=== PATIENT | female | born 1995 | race Caucasian/White ===

== ENCOUNTER 2018-07-26 23:33 | Observation (INO) | payer OTHER ==
--- NOTE | 2018-07-27 00:45 | PDOC ---
History of Present Illness - General Chief Complaint: Syncope/Near Syncope Stated Complaint: SYNCOPY Time Seen by Provider: 07/27/18 00:44 History Source: Patient Exam Limitations: No Limitations - History of Present Illness Initial Comments: 23 yo F w no pmh presents to the ER after 3 episodes of syncope today, decreased PO and fluid intake, abdominal pain, nausea and vomiting. She states she has not been able to eat very much since yesterday. She admits to feeling extremely dehydrated. She also endorses subjective feelings of warmth but no measured fevers and endorses occasional SOB. She states the pain in her abdomen is in the peigastric region, is 8/10 and does not radiate anywhere. LMP 1 week prior Denies headache, neck pain, blurry vision, diarrhea, back pain, dysuria, frequency, urgency PCP: None PSH: None reported Allergies: NKA, NKDA Social Hx: Denies smoking, drinking, and other substance usage. Past History - Past Medical History Allergies/Adverse Reactions: Allergies Allergy/AdvReac Type Severity Reaction Status Date / Time No Known Allergies Allergy Verified 07/27/18 00:48 Review of Systems - Review of Systems Able to Perform ROS?: Yes Comments:: CONSTITUTIONAL: Present: subjective fever, fatigue Absent: no chills EYES: Absent: visual changes ENT: Absent: ear pain, no sore throat CARDIOVASCULAR: Absent: chest pain, no palpitations RESPIRATORY: Present: SOB Absent: SOB GI: Present: Abdominal pain, nausea, vomiting Absent: no constipation, no diarrhea GENITOURINARY: Absent: dysuria, no frequency, no hematuria MUSKULOSKELETAL: Absent: back pain, no arthralgia, no myalgia SKIN: Absent: rash NEURO: Absent: headache *Physical Exam - Physical Exam Comments: GENERAL: Well-appearing, well-nourished. No apparent distress. HEENT: Normocephalic, atraumatic. PERRL, EOM intact. CARDIOVASCULAR: Normal S1, S2. Regular rate and rhythm. PULMONARY: No evidence of respiratory distress. Lungs clear to auscultation bilaterally. No wheezing, rales or rhonchi. ABDOMEN: Mild epigastric TTP. Soft, non-distended EXTREMITIES: Normal ROM in all four extremities. No gross deformities. SKIN: Pale, Warm, dry. No rash NEUROLOGICAL: No focal neurological deficits. ED Treatment Course - LABORATORY CBC & Chemistry Diagram: 07/27/18 01:00 07/27/18 01:00 Medical Decision Making - Medical Decision Making 23 yo F w no pmh presents to the ER after 3 episodes of syncope today, decreased PO and fluid intake, abdominal pain, nausea and vomiting. She states she has not been able to eat very much since yesterday. She admits to feeling extremely dehydrated. She also endorses subjective feelings of warmth but no measured fevers and endorses occasional SOB. She states the pain in her abdomen is in the peigastric region, is 8/10 and does not radiate anywhere. DDx IBNLT: Syncope vs seizure, gastroenteritis, food poisoning, pancreatitis, cholecystitis, arrhythmia, PE Plan: Labs, Urine, EKG, CXR, IV hydration, zofran, tylenol, echocardiogram, re- assess. ECHO shows normal wall movement diffusely. no pericardial effusion. When walking to the bathroom in the ED to provide urine patient syncopized and began having rhythmic jerks. There was conceern for a seizure so she received Ativan Will admit patient to Tele for further observation. *DC/Admit/Observation/Transfer Diagnosis at time of Disposition: Syncope and collapse - Discharge Dispostion Condition at time of disposition: Guarded Decision to Admit order: Yes - Referrals - Patient Instructions - Post Discharge Activity
[2018-07-27 00:48] VITALS: BMI 19.5
[2018-07-27] MEDS ORDERED: SODIUM CHLORIDE 0.9% 500 ML INFUS.BAG IV ONE ×2 (00:50→03:29)
[2018-07-27] MEDS ORDERED: ONDANSETRON 4 MG/2 ML VIAL IVPUSH ONE (00:51)
[2018-07-27] MEDS ORDERED: ACETAMINOPHEN 1000 MG/100 ML VIAL (NON FORMULARY) IVPB ONE (00:51)
[2018-07-27] MEDS ORDERED: ALBUTEROL SO4 0.5 % INH SOLN 2.5 MG/0.5 ML VIAL.NEB. NEB ONE (00:53)
[2018-07-27 01:06] LABS: BASO % 0.5 % (0-2.0); EOS % 0.2 % (0-4.5); HEMATOCRIT 36.6 % (32.4-45.2); HEMOGLOBIN 13.1 GM/dL (10.7-15.3); LYMPH % 6.1 % (8-40); MCH 30.1 pg (25.7-33.7); MCHC 35.8 g/dl (32.0-36.0); MEAN PLT VOLUME 8.4 fl (7.5-11.1); MONO % 7.5 % (3.8-10.2); NEUT % 85.7 % (42.8-82.8); PLATELET COUNT 238 K/MM3 (134-434); RBC 4.36 M/mm3 (3.60-5.2); RDW 13.2 % (11.6-15.6)
[2018-07-27] MEDS ORDERED: LORazepam 2 MG/ML SDV VIAL ONE (01:06)
[2018-07-27] MEDS ORDERED: ONDANSETRON 4 MG/2 ML VIAL ONE (01:16)
--- NOTE | 2018-07-27 01:17 | PDOC ---
Attending Attestation - Resident Resident Name: Kalyan Najera - ED Attending Attestation I have performed the following: I have examined & evaluated the patient, The case was reviewed & discussed with the resident, I agree w/resident's findings & plan, Exceptions are as noted - HPI HPI: 07/27/18 01:15 23 yo F currently on ocp, recently switched, here today wtih 2 4 hours mutliple epsiodes of nonbloody nonbilious emesis. no abd pain mild cramping with vomiting. today was walking and had syncopal episode. no fever, had chills mild headahce. no sick contacts. no h/o seizure disorder. no leg swelling no h/o pe or dvt. no mod factors. while in ed, pt with syncopal episode, concern for seizure, was given ativan. - Physicial Exam PE: 07/27/18 01:16 awake but drowsy ( post syncope) lungs clear bilaterally heart rrr no mrg abd soft nt nd. ext wwp no edema. no calf tenderness. skin warmand dry no rash. nuero moves all four ext. - Medical Decision Making 07/27/18 01:16 differential syncope vs. seizure. dehydration viral ge, uti pyelo anemia. 07/27/18 02:29 focused ED us TTE, indication syncope four view of heart obtained. no pericardial effusion good contractility no rv strain or dilation. impression: normal TTE FAST performed, indication syncope no free fluid in all four quadrants. subxiphoid heart no effusion. impression: negative fast Heart Score/ECG Review #1 General ECG Interpretation: Sinus Rhythm, Normal Rate (80), Normal Intervals, No acute ischemic changes
[2018-07-27 01:28] LABS: URINE APPEARANCE SLCLOUDY; URINE BILIRUBIN NEGATIVE (<2.0 mg/dL); URINE COLOR DKYELLOW; URINE GLUCOSE (UA) NEGATIVE (NEGATIVE); URINE KETONE 1+ (NEGATIVE); URINE LEUK ESTERASE NEGATIVE (NEGATIVE); URINE NITRITE NEGATIVE (NEGATIVE); URINE PROTEIN 2+ (NEGATIVE)
[2018-07-27 01:30] LABS: HCG,QUALITATIVE URINE Negative
[2018-07-27] MEDS ORDERED: ACETAMINOPHEN INJECTION 100 ML IVPB ONE (01:34)
[2018-07-27 01:35] LABS: ALBUMIN 3.6 g/dl (3.4-5.0); ALK PHOS 64 U/L (45-117); ANION GAP 8 MMOL/L (8-16); BILIRUBIN,TOTAL 0.2 mg/dL (0.2-1); BLOOD UREA NITROGEN 13 mg/dL (7-18); CALCIUM 8.2 mg/dL (8.5-10.1); CHLORIDE 106 mmol/L (98-107); CO2 26 mmol/L (21-32); CREATININE 0.8 mg/dL (0.55-1.3); GLUCOSE,RANDOM 94 mg/dL (74-106); LIPASE 235 U/L (73-393); POTASSIUM 3.7 mmol/L (3.5-5.1); SGOT/AST 14 U/L (15-37); SGPT/ALT 19 U/L (13-61); SODIUM 139 mmol/L (136-145)
[2018-07-27 01:56] LABS: EPI CELLS FEW /HPF (FEW); URINE BACTERIA RARE /hpf (NONE SEEN); URINE MUCUS MANY
[2018-07-27] MEDS ORDERED: SODIUM CHLORIDE 0.9% 1000 ML INFUS.BAG IV ONE (02:31)
[2018-07-27] MEDS ORDERED: LACTATED RINGERS SOLUTION 1,000 ML/1,000 ML INFUS.BAG IV STA (04:16)
--- NOTE | 2018-07-27 04:52 | PN ---
Teaching Attending Note Name of Resident: Liliam Brownlee ATTENDING PHYSICIAN STATEMENT I saw and evaluated the patient. I reviewed the resident's note and discussed the case with the resident. I agree with the resident's findings and plan as documented. SUBJECTIVE: Patient is a 23 year old woman with PMH of oral contracepive pill use who presents to the ER after 3 episodes of syncope today, decreased PO and fluid intake, abdominal pain, nausea and vomiting. She states she has not been able to eat very much since yesterday. She admits to feeling extremely dehydrated. She also endorses subjective feelings of warmth but no measured fevers and endorses occasional SOB. She states the pain in her abdomen is in the epigastrium, is 8/10 and does not radiate. LMP was last week and it was scanty. Denies headache, neck pain, blurry vision, diarrhea, back pain, dysuria, frequency, urgency When walking to the bathroom in the ER to provide urine patient had an episode of syncope and began having rhythmic jerks. There was concern for a seizure so she received Ativan OBJECTIVE: Alert Vital Signs Period Temp Pulse Resp BP Sys/Rosa Pulse Ox Last 24 Hr 98.9 F 92 16 116/72 98 HEENT: No Jaundice, eye redness or discharge, PERRLA, EOMI. Normocephalic, atraumatic. External ears are normal and hearing is grossly intact. No nasal discharge. Neck: Supple, nontender. No palpable adenopathy or thyromegaly. No JVD Chest: Good effort. Clear to auscultation and percussion. Heart: Regular. No S3, rub or murmur Abdomen: Not distended, soft, nontender and no HSM. No rebound or guarding. Normoactive bowel sounds. Ext: Peripheral pulses intact. No leg edema. Skin: Warm and dry. No petechiae, rash or ecchymosis. Neuro: Alert. Oriented x3. CN 2-12 grossly intact. Sensation grossly intact in all four extremities and DTR are symmetric. Current Medications Generic Name Dose Route Start Last Admin Trade Name Freq PRN Reason Stop Dose Admin Lactated Ringer's 1,000 ml in 1,000 mls @ 1,000 mls/hr 07/27/18 04:16 Lactated Ringers Solution IV 07/27/18 05:15 ONCE STA Abnormal Lab Results 07/27/18 07/27/18 07/27/18 01:00 01:00 01:10 WBC 11.0 H Absolute Neuts (auto) 9.4 H Neutrophils % 85.7 H Lymphocytes % 6.1 L Calcium 8.2 L AST 14 L Urine Protein 2+ H Urine Ketones 1+ H Urine Urobilinogen 2.0 H ASSESSMENT AND PLAN: 1. Syncope - Etiology unclear, but complex partial seizures must be ruled out. Will get urine toxicology, EEG, ECHO, serum beta HCG, brain CT scan and hydrate her. Consult neurology. 2. DVT prophylaxis - Lovenox 40 mg SQ q 24 hours. 3. Advance directives - Full code
--- NOTE | 2018-07-27 05:06 | HP ---
CHIEF COMPLAINT: syncope PCP: HISTORY OF PRESENT ILLNESS: 23 y/o F with no significant PMH who presents to the ED c/o syncopal events that occurred yesterday. As per pt, she had multiple episodes of NBNB emesis yesterday, and became very weak. She became lethargic, and as she was straining to vomit, she syncopized. Falling on her boyfriend. This occurred two additional times yesterday. Denies head trauma, or fall to ground. During this time, pt endorsed 7/10 generalized abdominal pain. Of note, pt has had two days of decreased PO intake, as well as subjective fever and frontal CHOU. Denies fever , chills, SOB, chest pain or pressure, or changes in urinary or bowel function. While pt was in the ED, ambulating to the bathroom, she fell to the ground and her UE, LE "tensed." For this reason, she was given ativan 2mg IVP x 1. Pt is sexually active with her boyfriend. LMP 1 week ago, period was not heavy - 2-3 days, then she started spotting. Currently on control, had switched medications a week ago. Denies sexually transmitted infections. ER course was notable for: (1) ativan 2mg IVP x 1 (2) IV tylenol (3) nebs, LR, zofran Recent Travel: denies PAST MEDICAL HISTORY: as above PAST SURGICAL HISTORY: denies Social History: lives independently. 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 Smoking: denies Alcohol: denies Drugs: denies Family History: grandfather- HTN, HLD Allergies No Known Allergies Allergy (Verified 07/27/18 00:48) HOME MEDICATIONS: on control (does not recall the name) REVIEW OF SYSTEMS CONSTITUTIONAL: Absent: fever, chills, diaphoresis, generalized weakness, malaise, loss of appetite, weight change HEENT: Absent: rhinorrhea, nasal congestion, throat pain, throat swelling, difficulty swallowing, mouth swelling, ear pain, eye pain, visual changes CARDIOVASCULAR: Absent: chest pain, syncope, palpitations, irregular heart rate, lightheadedness , peripheral edema RESPIRATORY: Absent: cough, shortness of breath, dyspnea with exertion, orthopnea, wheezing, stridor, hemoptysis GASTROINTESTINAL: +abdominal pain, N/V Absent: abdominal pain, abdominal distension, nausea, vomiting, diarrhea, constipation, melena, hematochezia GENITOURINARY: Absent: dysuria, frequency, urgency, hesitancy, hematuria, flank pain, genital pain MUSCULOSKELETAL: Absent: myalgia, arthralgia, joint swelling, back pain, neck pain SKIN: Absent: rash, itching, pallor HEMATOLOGIC/IMMUNOLOGIC: Absent: easy bleeding, easy bruising, lymphadenopathy, frequent infections ENDOCRINE: Absent: unexplained weight gain, unexplained weight loss, heat intolerance, cold intolerance NEUROLOGIC: +CHOU,syncope Absent: headache, focal weakness or paresthesias, dizziness, unsteady gait, seizure, mental status changes, bladder or bowel incontinence PSYCHIATRIC: Absent: anxiety, depression, suicidal or homicidal ideation, hallucinations. PHYSICAL EXAMINATION Vital Signs - 24 hr 07/26/18 23:33 Temperature 98.9 F Pulse Rate 92 H Respiratory 16 Rate Blood Pressure 116/72 O2 Sat by Pulse 98 Oximetry (%) GENERAL: Very pleasant. mildly lethargic HEAD: Normal with no signs of trauma. EYES: Pupils equal, round and reactive to light, extraocular movements intact, sclera anicteric, conjunctiva clear. EARS, NOSE, THROAT: Ears normal, nares patent, oropharynx clear without exudates. Dry mucous membranes. NECK: Normal range of motion, supple LUNGS: Breath sounds equal, clear to auscultation bilaterally. No wheezes, and no crackles. No accessory muscle use. HEART: Regular rate and rhythm, normal S1 and S2 without murmur, rub or gallop. ABDOMEN: Soft, nontender, not distended, normoactive bowel sounds, no guarding, no rebound, no masses. LOWER EXTREMITIES: 2+ pt pulses, warm, well-perfused. No calf tenderness. No peripheral edema. NEUROLOGICAL: Cranial nerves II-XII intact. 5/5 motor strength UE, LE. sensation intact PSYCHIATRIC: Cooperative. SKIN: Warm, dry Laboratory Results - last 24 hr 07/27/18 07/27/18 07/27/18 01:00 01:00 01:10 WBC 11.0 H RBC 4.36 Hgb 13.1 Hct 36.6 MCV 84.0 MCH 30.1 MCHC 35.8 RDW 13.2 Plt Count 238 MPV 8.4 Absolute Neuts (auto) 9.4 H Neutrophils % 85.7 H Lymphocytes % 6.1 L Monocytes % 7.5 Eosinophils % 0.2 Basophils % 0.5 Nucleated RBC % 0 Sodium 139 Potassium 3.7 Chloride 106 Carbon Dioxide 26 Anion Gap 8 BUN 13 Creatinine 0.8 Creat Clearance w eGFR > 60 Random Glucose 94 Calcium 8.2 L Total Bilirubin 0.2 AST 14 L ALT 19 Alkaline Phosphatase 64 Total Protein 7.0 Albumin 3.6 Lipase 235 Urine Color Dkyellow Urine Appearance Slcloudy Urine pH 6.0 Ur Specific [place] 1.033 Urine Protein 2+ H Urine Glucose (UA) Negative Urine Ketones 1+ H Urine Blood Negative Urine Nitrite Negative Urine Bilirubin Negative Urine Urobilinogen 2.0 H Ur Leukocyte Esterase Negative Urine WBC (Auto) 4 Urine RBC (Auto) 4 Ur Epithelial Cells Few Urine Bacteria Rare Urine Mucus Many Urine HCG, Qual Negative CXR: without infiltrates, or effusions- my read. official read EKG: NSR, rate 80bpm, Qtc 440ms. no acute St-T wave changes orthostatic (-) (however after 3L of fluid) ASSESSMENT/PLAN: 23 y/o F with no significant PMH who presents to the ED c/o syncopal events that occurred yesterday. #Possible syncope vs. seizure -pt with multiple episodes of syncope while ambulating, possible 2/2 viral gastro, . -will also send utox to r/o ingestions. -f/u serum b-hcg -f/u ECHO to check valves -f/u Head CT -neuro consult: Dr. Salcido, EEG -sz precautions -IVF #F/E/N IV NS 100 cc/hr continue to follow lytes full liquid diet, advance as tolerated #PPX DVT: early ambulation, SCD's. expect short stay #Dispo tele obs Visit type - Emergency Visit Emergency Visit: Yes ED Registration Date: 07/27/18 Care time: The patient presented to the Emergency Department on the above date and was hospitalized for further evaluation of their emergent condition. - New Patient This patient is new to me today: Yes Date on this admission: 07/27/18 - Critical Care Critical Care patient: No
[2018-07-27] MEDS ORDERED: SODIUM CHLORIDE 1,000 ML IV SCH (05:15)
[2018-07-27 09:52] LABS: BASO % 0.4 % (0-2.0); EOS % 0.1 % (0-4.5); HEMATOCRIT 32.7 % (32.4-45.2); HEMOGLOBIN 11.4 GM/dL (10.7-15.3); LYMPH % 18.9 % (8-40); MCH 29.5 pg (25.7-33.7); MCHC 34.8 g/dl (32.0-36.0); MEAN PLT VOLUME 8.6 fl (7.5-11.1); NEUT % 68.6 % (42.8-82.8); PLATELET COUNT 209 K/MM3 (134-434); RBC 3.84 M/mm3 (3.60-5.2); RDW 13.4 % (11.6-15.6); WHITE BLOOD COUNT 5.8 K/mm3 (4.0-10.0)
--- NOTE | 2018-07-27 10:18 | PN ---
Teaching Attending Note Name of Resident: Marlena Aguilar ATTENDING PHYSICIAN STATEMENT I saw and evaluated the patient. I reviewed the resident's note and discussed the case with the resident. I agree with the resident's findings and plan as documented with exceptions below. SUBJECTIVE: Patient seen and examined. feels better currently, still weak, denies any nausea , vomiting this AM. Cough with occasional greenish sputum for 2 days. No family hx of Sudden cardiac or Coronary disease/stroke at a young age. OBJECTIVE: Vital Signs Period Temp Pulse Resp BP Sys/Rosa Pulse Ox Last 24 Hr 98.4 F-98.9 F 83-92 16 116-122/72-78 98-100 Intake & Output 07/24/18 07/25/18 07/26/18 07/27/18 23:59 23:59 23:59 23:59 Weight 125 lb General: lying in bed in no acute distress Neck: soft, supple, no JVD or carotid bruit appreciated CVS:S1S2 regular Chest: CTAB, no rales or wheezing Abdomen:Soft, NT, ND, positive bowel sounds Extremities: no edema Neuro: AAOX3, power 5/5, sensation intact to light touch, DTR bilaterally symmetric, no pronator drift, tongue midline, toes downgoing Cranial nerves II- XII intact, gait deferred Active Medications Sodium Chloride (Normal Saline -) 1,000 mls @ 100 mls/hr IV ASDIR KATTY Last Admin: 07/27/18 06:53 Dose: 100 mls/hr Laboratory Results - last 24 hr 07/27/18 07/27/18 07/27/18 01:00 01:00 01:10 WBC 11.0 H RBC 4.36 Hgb 13.1 Hct 36.6 MCV 84.0 MCH 30.1 MCHC 35.8 RDW 13.2 Plt Count 238 MPV 8.4 Absolute Neuts (auto) 9.4 H Neutrophils % 85.7 H Lymphocytes % 6.1 L Monocytes % 7.5 Eosinophils % 0.2 Basophils % 0.5 Nucleated RBC % 0 Sodium 139 Potassium 3.7 Chloride 106 Carbon Dioxide 26 Anion Gap 8 BUN 13 Creatinine 0.8 Creat Clearance w eGFR > 60 Random Glucose 94 Calcium 8.2 L Total Bilirubin 0.2 AST 14 L ALT 19 Alkaline Phosphatase 64 Total Protein 7.0 Albumin 3.6 Lipase 235 Urine Color Dkyellow Urine Appearance Slcloudy Urine pH 6.0 Ur Specific [place] 1.033 Urine Protein 2+ H Urine Glucose (UA) Negative Urine Ketones 1+ H Urine Blood Negative Urine Nitrite Negative Urine Bilirubin Negative Urine Urobilinogen 2.0 H Ur Leukocyte Esterase Negative Urine WBC (Auto) 4 Urine RBC (Auto) 4 Ur Epithelial Cells Few Urine Bacteria Rare Urine Mucus Many Urine HCG, Qual Negative 07/27/18 09:34 WBC 5.8 RBC 3.84 Hgb 11.4 Hct 32.7 MCV 85.0 MCH 29.5 MCHC 34.8 RDW 13.4 Plt Count 209 MPV 8.6 Absolute Neuts (auto) 4.0 Neutrophils % 68.6 Lymphocytes % 18.9 D Monocytes % 12.0 H Eosinophils % 0.1 Basophils % 0.4 Nucleated RBC % 0 Sodium Potassium Chloride Carbon Dioxide Anion Gap BUN Creatinine Creat Clearance w eGFR Random Glucose Calcium Total Bilirubin AST ALT Alkaline Phosphatase Total Protein Albumin Lipase Urine Color Urine Appearance Urine pH Ur Specific [place] Urine Protein Urine Glucose (UA) Urine Ketones Urine Blood Urine Nitrite Urine Bilirubin Urine Urobilinogen Ur Leukocyte Esterase Urine WBC (Auto) Urine RBC (Auto) Ur Epithelial Cells Urine Bacteria Urine Mucus Urine HCG, Qual CT brain results reviewed ASSESSMENT AND PLAN: 23 yof with no significant PMHx with syncopal episodes, last one with some concerns for seizures in the setting of recent cough/vomiting/poor oral intake. -Syncopal episodes, suspect vagal from vomiting/straining compounded by hypovolumia, r/o seizure given some concerns on witnessed episode in ED -Recent cough/nausea, vomiting, ?Viral illness -Dehydration Plan: Patient reports onset of symptoms with cough with greenish sputum/weakness 2-3 days ago, progressing to nausea, multiple episodes of vomiting and poor oral intake. First syncope episode when got up, went to bathroom trying to vomit, when felt spinning, felt was about to pass out and supported by boyfriend, few sec of LOC. Was taken back to bed, when on her way had a similar transient episode, when 911 was called. While in ED, she had her blood drawn, after which went to bathroom to give urine sample, voided and got up, on her way back had similar symptoms of passing out, could 'see it coming' when was witnessed again by boyfriend with few sec of LOC. During the episode, reports of eyes rolling with stiffening of all extremities, that was again transient. No post ictal confusion, tongue bite , urinary or bowel incontinence noted. Overall episodes are suggestive of vagal episodes compounded by hypovolumia, not fully convincing for seizure. However, will f/u neurology input. Will continue IVF, supportive treatment, check orthostatics. Check flu swab though low suspicion. Telemetry monitoring x 24 hours and follow up 2D echo. PO as tolerated. neuro checks, seizure precautions DVTPPX low risk Dispo in 24 hours if no new concerns, tolerating diet, pending neurology input and above work up. Plan discussed with patient and boyfriend at bedside in detail, all questions answered.
[2018-07-27 10:28] LABS: ANION GAP 5 MMOL/L (8-16); BLOOD UREA NITROGEN 7 mg/dL (7-18); CALCIUM 7.9 mg/dL (8.5-10.1); CHLORIDE 109 mmol/L (98-107); CO2 27 mmol/L (21-32); CREATININE 0.6 mg/dL (0.55-1.3); GLUCOSE,RANDOM 89 mg/dL (74-106); MAGNESIUM 1.7 mg/dL (1.8-2.4); PHOSPHOROUS 2.7 mg/dL (2.5-4.9); POTASSIUM 3.8 mmol/L (3.5-5.1); SODIUM 142 mmol/L (136-145)
[2018-07-27] MEDS ORDERED: MAGNESIUM SULF 50% (8.12 MEQ/2 ML-1 GM VIAL) IVPB ONE (10:30)
[2018-07-27 12:18] VITALS: BP 115/67; PULSE 77; TEMP 98.7
--- NOTE | 2018-07-27 13:30 | ECHO ---
Name: KMAERON MCCORD Exam:Adult Echocardiogram Study Date: 07/27/2018 08:13 AM Age: 23 yrs Reason For Study: SYNCOPE Height: 67 in Weight: 125 lb BSA: 1.7 m2 MMode/2D Measurements & Calculations IVSd: 0.72 cm Ao root diam: 2.6 cm LVIDd: 4.6 cm LA dimension: 2.2 cm LVIDs: 2.6 cm LVPWd: 0.79 cm EDV(Teich): 96.6 ml LAV (MOD-bp): 46.2 ml ESV(Teich): 25.5 ml Doppler Measurements & Calculations MV E max sanjay: 103.0 cm/sec MR max sanjay: 338.6 cm/sec MV A max sanjay: 87.3 cm/sec MR max P.0 mmHg MV E/A: 1.2 MV dec time: 0.10 sec TR max sanjay: 180.5 cm/sec Med Peak E' Sanjay: 15.3 cm/sec TR max P.0 mmHg Med E/e': 6.7 Lat Peak E' Sanjay: 17.5 cm/sec Lat E/e': 5.9 PI Vmax: 99.8 cm/sec Left Ventricle The left ventricular size, thickness and function are normal. Ejection Fraction = 65%. Left Ventricul ar Filling pattern is normal for age. The left ventricular wall motion is normal. Right Ventricle The right ventricle is normal in size and function. Atria Normal left and right atrial size and function. Mitral Valve The mitral valve is grossly normal. There is trace to mild mitral regurgitation. Tricuspid Valve The tricuspid valve is normal in structure and function. There is Trace to mild tricuspid regurgitati on. Doppler findings do not suggest pulmonary hypertension. Aortic Valve The aortic valve is normal in structure and function. Pulmonic Valve The pulmonic valve leaflets are thin and pliable; valve motion is normal. Great Vessels The aortic root is normal size. Normal aortic arch, descending and ascending aorta. Pericardium/Pleura There is no pericardial effusion. There is no pleural effusion. Interpretation Summary The left ventricular size, thickness and function are normal Ejection Fraction = 65%. There is trace to mild mitral regurgitation. There is Trace to mild tricuspid regurgitation. Doppler findings do not suggest pulmonary hypertension. The aortic valve is normal in structure and function. MD Erick Rush 07/27/2018 01:30 PM
--- NOTE | 2018-07-27 15:05 | EKG ---
Test Reason : Blood Pressure : / mmHG Vent. Rate : 080 BPM Atrial Rate : 080 BPM P-R Int : 114 ms QRS Dur : 076 ms QT Int : 382 ms P-R-T Axes : -17 059 043 degrees QTc Int : 440 ms NORMAL SINUS RHYTHM NORMAL ECG NO PREVIOUS ECGS AVAILABLE Confirmed by Erick Rush MD ([id number]) on 07/27/2018 3:05:24 PM Referred By: Confirmed By:Erick Rush MD
--- NOTE | 2018-07-27 15:41 | CON.NEURO ---
Consult - Alcohol/Substance Use Hx Alcohol Use: No - Smoking History Smoking history: Never smoked Have you smoked in the past 12 months: No Home Medications - Allergies Allergies/Adverse Reactions: Allergies Allergy/AdvReac Type Severity Reaction Status Date / Time No Known Allergies Allergy Verified 07/27/18 00:48 Physical Exam-Neuro Vital Signs: Vital Signs Temperature 98.7 F 07/27/18 12:17 Pulse Rate 77 07/27/18 12:17 Respiratory Rate 16 07/27/18 12:17 Blood Pressure 115/67 07/27/18 12:17 O2 Sat by Pulse Oximetry (%) 99 07/27/18 12:17 Labs: CBC, BMP 07/27/18 09:34 07/27/18 09:34 Assessment/Plan CC Passing out episodes HPI 23 year old femael , no significant prior medical history. She was suffering from flu and was vomiting and dehydrated. She has two episode of passing out very briefly. One occasion, her lower extremity became stiff and eye rolled back.She denies any tonic clonic activity , no incontinence, no post ictal confusion, no tongue bite. Her ct head is normal. Patient denies any drug abuse or any focal neurological symptoms. Her eeg was done and it was normal. PAST MEDICAL HISTORY: nothing sifnificant PAST SURGICAL HISTORY: denies Social History: lives independently. 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 She has episode of passing out , likely to be vasovagal syncope. Unlikely to be seizure. Plan ; she was advised against driving given she has episode of syncope - unlikely to be seizure, no need for AED - Follow up outpatient Thanking you so much Gabriele Salcido MD
--- NOTE | 2018-07-27 15:44 | DS ---
Physical Exam: SUBJECTIVE: PATIENT LEFT AMA PRIOR TO MY EVALUATION OBJECTIVE: Vital Signs Period Temp Pulse Resp BP Sys/Rosa Pulse Ox Last 24 Hr 98.4 F-98.9 F 77-92 16-16 115-122/67-78 98-100 Laboratory Results 07/27/18 09:34 07/27/18 09:34 07/27/18 09:34 Phosphorus 2.7 Magnesium 1.7 L Beta HCG, Quant < 1.0 Urine Color Dkyellow 07/27/18 01:10 Urine Appearance Slcloudy 07/27/18 01:10 Urine pH 6.0 (5.0-8.0) 07/27/18 01:10 Ur Specific Partridge 1.033 (1.010-1.035) 07/27/18 01:10 Urine Protein 2+ (NEGATIVE) H 07/27/18 01:10 Urine Glucose (UA) Negative (NEGATIVE) 07/27/18 01:10 Urine Ketones 1+ (NEGATIVE) H 07/27/18 01:10 Urine Blood Negative (NEGATIVE) 07/27/18 01:10 Urine Nitrite Negative (NEGATIVE) 07/27/18 01:10 Urine Bilirubin Negative (<2.0 mg/dL) 07/27/18 01:10 Ur Leukocyte Esterase Negative (NEGATIVE) 07/27/18 01:10 Ur Epithelial Cells Few /HPF (FEW) 07/27/18 01:10 Urine Bacteria Rare /hpf (NONE SEEN) 07/27/18 01:10 Urine Mucus Many 07/27/18 01:10 IMAGES: Head CT (07/27/18): No evidence of a focal intracranial lesion or hemorrhage seen. No acute pathology PRE-HOSPITAL COURSE: Patient is a 23 year old female with no PMHx who presented to the ED after one syncopal episode that occurred the previous day associated with multiple episodes of non bloody non bilious emesis. Patient reports she was very lethargic, weak, and dehydrated, causing her to syncopize and eventually falling on her boyfriend, which prompted this hospital visit. While in the ED patient was ambulating to the bathroom and fell to the bathroom with whole body "tensing" and was given 2mg of IV ativan x1. Patient was admitted for further monitoring and evaluation to rule out seizure disorder or possible tumor. HOSPITAL COURSE: Throughout hospitalization, Patient had ECHO, EEG, and CT done which revealed no acute pathologies. Labs were also unremarkable. Patient was evaluated by Neurologist and determined that it was likely a vasovagal syncope. Neurologist recommended no further interventions and no anti-epileptic medications. Recommended patient fluids to stay hydrated, no driving until cleared by her doctor and a follow up with the Neurologist within two weeks. Patient had no further seizure episodes in the hospital and no further episodes of vomiting. Patient cleared by neurology and medically cleared to be discharged. Patient to be discharged with boyfriend at bedside who will take her home. Date of Admission:07/27/18 Date of Discharge: 07/27/18 Minutes to complete discharge: 45 Discharge Summary Reason For Visit: KETONURIA,SYNCOPE AND COLLAPSE,DEHYDRATION Current Active Problems Syncope and collapse (Acute) Condition: Guarded - Instructions This patient is new to me today: Yes Date on this admission: 07/27/18 Emergency Visit: Yes ED Registration Date: 07/27/18 Care time: The patient presented to the Emergency Department on the above date and was hospitalized for further evaluation of their emergent condition. Critical Care patient: No - Discharge Referral Referred to [facility] Med P.C.: No
== END 2018-07-27 16:00 | disposition left against medical advice (07) | DRG 204 ==
LOC: JER 23:33 → UNDOADMOB 07-27 04:26 → JERBED 07-27 04:26 → OBSVTOIN 07-27 05:02 → INTOOBSV 07-27 05:02 → JERBED 07-27 05:05 → UNDODISOB 07-27 16:00
PROVIDERS: ADMIT Internal Medicine; ATTEND Internal Medicine
PROC: 3E033NZ Introduction of Analgesics, Hypnotics, Sedatives into Peripheral Vein, Percutaneous Approach (ICD-10-PCS; principal; 2018-07-27)
PROC: 3E033GC Introduction of Other Therapeutic Substance into Peripheral Vein, Percutaneous Approach (ICD-10-PCS; 2018-07-27)
PROC: 3E0337Z Introduction of Electrolytic and Water Balance Substance into Peripheral Vein, Percutaneous Approach (ICD-10-PCS; 2018-07-27)
PROC: 3E0F7GC Introduction of Other Therapeutic Substance into Respiratory Tract, Via Natural or Artificial Opening (ICD-10-PCS; 2018-07-27)
DX: R55 Syncope and collapse (principal); E86.0 Dehydration; R82.4 Acetonuria
CPT/HCPCS: 36415; 70450-TC; 71046-TC-FY; 80048; 80053; 81003; 81015; 83690; 83735; 84100; 84702; 84703; 85025; 93005; 93010; 93306-TC; 94640; 95816; 96361; 96374; 96375; 99283-25; G0378; J0131; J7030

== ENCOUNTER 2020-02-13 18:08 | Emergency (ER) | payer OTHER ==
[2020-02-13] MEDS ORDERED: METOCLOPRAMIDE HCL INJECTION 10 MG/2 ML VIAL IVPB ONE (18:19)
[2020-02-13] MEDS ORDERED: SODIUM CHLORIDE 1,000 ML IV STA (18:19)
[2020-02-13] MEDS ORDERED: ACETAMINOPHEN 1000 MG/100 ML VIAL (NON FORMULARY) IVPB ONE (18:19)
[2020-02-13] MEDS ORDERED: FAMOTIDINE 20 MG/50 ML IVPB 20 MG/50 ML MG IVPB ONE ×2 (18:20→19:49)
--- NOTE | 2020-02-13 18:20 | PDOC ---
Rapid Medical Evaluation Time Seen by Provider: 02/13/20 18:14 Medical Evaluation: Allergies Allergy/AdvReac Type Severity Reaction Status Date / Time No Known Allergies Allergy Verified 07/27/18 00:48 02/13/20 18:14 Pt presents for evaluation of nausea and vomiting in . Reports an 8lb weight loss. Was sent by her TOOL AND FIXTURE REPAIRER for fluids. LMP December 12 Exam: Well appearing, epigastric pain Orders: labs, IV Pt to proceed to the ER for further evaluation Discharge Disposition - Diagnosis Hyperemesis - Referrals - Patient Instructions - Post Discharge Activity
[2020-02-13 18:24] VITALS: TEMP 98.3
--- NOTE | 2020-02-13 19:38 | PDOC ---
*Physical Exam - Vital Signs Last Vital Signs Temp Pulse Resp BP Pulse Ox 98.3 F 108 H 20 137/74 100 02/13/20 18:15 02/13/20 18:15 02/13/20 18:15 02/13/20 18:15 02/13/20 18:15 Medical Decision Making - Medical Decision Making 02/13/20 19:38 Patient seen by the advanced practice provider under my supervision. Ancillary testing reviewed as necessary. I agree with plan as outlined by the advanced practice provider. Discharge - Discharge Information Problems reviewed: Yes Clinical Impression/Diagnosis: Hyperemesis gravidarum Condition: Fair Disposition: HOME - Additional Discharge Information Prescriptions: Doxylamine Succinate/Vit B6 [Javier Ag 10-10 mg Tablet] 1 each PO BID PRN #30 tablet. PRN Reason: Nausea And/Or Vomiting - Follow up/Referral - Patient Discharge Instructions Additional Instructions: Drink plenty of fluids. Your emergency department is incomplete until you follow-up with your LAUNDRY BAG PUNCH OPERATOR. Take diclegis 1 tablet twice a day as needed for nausea and/or vomiting. This medication is safe in as it is mostly vitamins Return to the emergency department for inability to eat or drink including water. Thank you very much for choosing us to provide your emergent healthcare needs. - Post Discharge Activity
[2020-02-13] MEDS ORDERED: ACETAMINOPHEN INJECTION 100 ML IVPB ONE (19:49)
[2020-02-13] MEDS ORDERED: METOCLOPRAMIDE HCL INJECTION 10 MG/2 ML VIAL ONE (19:49)
--- NOTE | 2020-02-13 20:04 | PDOC ---
History of Present Illness - General Chief Complaint: Nausea/Vomiting Stated Complaint: SENT BY OBGYN Time Seen by Provider: 02/13/20 18:14 History Source: Patient Exam Limitations: No Limitations - History of Present Illness Initial Comments: 02/13/20 19:59 HISTORY OF PRESENT ILLNESS: 24-year-old prima who is currently 8 weeks gestation who presents emergency department for evaluation of hyperemesis. Patient reports she was seen and evaluated at [facility] emergency department on Thursday and had normal laboratory testing there. Patient was seen and evaluated by her LOGGING TRUCK DRIVER earlier today who did some blood testing and recommended patient come to the emergency department for evaluation. Patient was started on Zofran at the emergency department at [facility] but was told to discontinue by her LOGGING TRUCK DRIVER. Patient reports she is unable to tolerate any p.o.'s including liquids for the past 2 days. No recent travel or sick contacts. PAST MEDICAL HISTORY: Denies past medical history SURGICAL HISTORY: Denies ALLERGIES: PCN REVIEW OF SYSTEMS General/Constitutional: Denies fever or chills. Denies weakness, weight change. HEENT: Denies change in vision. Denies ear pain or discharge. Denies sore throat. Cardiovascular: Denies chest pain or shortness of breath. Respiratory: Denies cough, wheezing, or hemoptysis. Gastrointestinal: see HPI Genitourinary: Denies dysuria, frequency, or change in urination. Musculoskeletal: Denies joint or muscle swelling or pain. Denies neck or back pain. Skin and breasts: Denies rash or easy bruising. Neurologic: Denies headache, vertigo, loss of consciousness, or loss of sensation. Psychiatric: Denies depression or anxiety. Endocrine: Denies increased thirst. Denies abnormal weight change. Hematologic/Lymphatic: Denies anemia, easy bleeding, or history of blood clots. Allergic/Immunologic: Denies hives or skin allergy. Denies latex allergy. PHYSICAL EXAM General Appearance: Well-appearing, appropriately dressed. No apparent distress, no intoxication. HEENT: EOMI, PERRLA, normal ENT inspection, normal voice, TMs normal, pharynx normal. No conjunctival pallor. No photophobia, scleral icterus. Moist mucous membranes noted. Respiratory/Chest: Lungs CTAB. No shortness of breath, chest tenderness, respiratory distress, accessory muscle use. No crackles, rales, rhonchi, stridor, wheezing, dullness Cardiovascular: Regular rhythm. Heart rate noted to be 100 upon apical pulse. S1, S2. No JVD, murmur, bradycardia, tachycardia. Vascular Pulses: Dorsalis-Pedis (R): 2+, Dorsalis-Pedis (L): 2+ Gastrointestinal/Abdominal: Normal bowel sounds. Abdomen soft, non-distended. No tenderness or rebound tenderness. No organomegaly, pulsatile mass, guarding, hernia, hepatomegaly, splenomegaly. Past History - Medical History Allergies/Adverse Reactions: Allergies Allergy/AdvReac Type Severity Reaction Status Date / Time Penicillins Allergy Verified 02/13/20 18:14 Home Medications: Ambulatory Orders Doxylamine Succinate/Vit B6 [Javier Ag 10-10 mg Tablet] 1 each PO BID PRN #30 tablet. 02/13/20 COPD: No - Reproductive History Is Patient Now?: Yes - Immunization History Immunization Up to Date: No - Psycho-Social/Smoking History Smoking History: Never smoked Have you smoked in the past 12 months: No - Substance Abuse Hx (Audit-C & DAST Scrn) How often the patient has a drink containing alcohol: Never Score: In Men: 4 or > Positive; In Women: 3 or > Positive: 0 Screen Result (Pos requires Nsg. Audit-10AR): Negative In the last yr the pt used illegal drug/Rx for NonMed reason: No Score: Yes response is considered Positive: 0 Screen Result (Positive result requires Nsg. DAST-10): Negative *Physical Exam - Vital Signs Last Vital Signs Temp Pulse Resp BP Pulse Ox 98.3 F 108 H 20 137/74 100 02/13/20 18:15 02/13/20 18:15 02/13/20 18:15 02/13/20 18:15 02/13/20 18:15 ED Treatment Course - Medications Given in the ED: ED Medications Discontinued Medications Generic Name Dose Route Start Last Admin Trade Name Freq PRN Reason Stop Dose Admin Acetaminophen 1,000 mg 02/13/20 18:19 02/13/20 19:54 Ofirmev Injection - IVPB 02/13/20 18:20 1,000 mg ONCE ONE Administration Medical Decision Making - Medical Decision Making 02/13/20 20:03 A/P: 24-year-old woman with hyperemesis gravidarum Physical exam is unremarkable with the exception of heart rate 100 on evaluation Patient is refusing blood testing at this time as she had blood testing performed at her LOGGING TRUCK DRIVER's office. Was explained to the patient that during acute episodes of hyperemesis electrolyte imbalances may result patient continues to refuse blood testing. Other orders per [facility] Reassess 02/13/20 21:44 Patient is able to tolerate p.o.'s after receiving medication in 1 L of fluids. Patient is requesting discharge at this time. Is explained to the patient again that without blood testing her evaluation is incomplete. Patient has been instr ucted to follow-up with her primary doctor and a prescription for diclegis has been sent to patient's preferred pharmacy. I discussed the physical exam findings, ancillary test results and final diag noses with the patient. I answered all of the patient's questions. The patient was satisfied with the care received and felt comfortable with the discharge plan and treatment plan. The patient will call their primary care physician within 24 hours to arrange follow-up and will return to the Emergency Department with any new, persistent or worsening symptoms. Portions of this note have been documented using voice recognition software. As a result, errors may occur in the railroad repairer process. Effort has been made to correct all grammatical and railroad repairer error, but some may have been missed which may produce sporadic inaccurate railroad repairer or nonsensical phrases. Discharge - Discharge Information Problems reviewed: Yes Clinical Impression/Diagnosis: Hyperemesis gravidarum Condition: Fair Disposition: HOME - Admission No - Additional Discharge Information Prescriptions: Doxylamine Succinate/Vit B6 [Diclegis Dr 10-10 mg Tablet] 1 each PO BID PRN #30 tablet. PRN Reason: Nausea And/Or Vomiting - Follow up/Referral - Patient Discharge Instructions Additional Instructions: Drink plenty of fluids. Your emergency department is incomplete until you follow-up with your LOGGING TRUCK DRIVER. Take diclegis 1 tablet twice a day as needed for nausea and/or vomiting. This medication is safe in as it is mostly vitamins Return to the emergency department for inability to eat or drink including water. Thank you very much for choosing us to provide your emergent healthcare needs. - Post Discharge Activity
[2020-02-13 21:32] VITALS: BP 106/59; PULSE 70
== END 2020-02-13 22:05 | disposition home or self-care (01) ==
LOC: JER 18:08
PROC: 3E0333Z Introduction of Anti-inflammatory into Peripheral Vein, Percutaneous Approach (ICD-10-PCS; principal; 2020-02-13)
PROC: 3E033GC Introduction of Other Therapeutic Substance into Peripheral Vein, Percutaneous Approach (ICD-10-PCS; 2020-02-13)
PROC: 3E0337Z Introduction of Electrolytic and Water Balance Substance into Peripheral Vein, Percutaneous Approach (ICD-10-PCS; 2020-02-13)
DX: O21.1 Hyperemesis gravidarum with metabolic disturbance (principal)
CPT/HCPCS: 99284-25; J0131